=== PATIENT | male | born 1985 | race Caucasian/White ===

== ENCOUNTER 2019-04-02 22:36 | Emergency (ER) | payer OTHER, SELFPAY ==
[2019-04-02 22:43] VITALS: BP 130/75; PULSE 69; RESP 20; TEMP 36.1; O2SAT 99
[2019-04-02 23:05] VITALS: BP 133/81; PULSE 81; RESP 18; TEMP 36.8; O2SAT 100
--- NOTE | 2019-04-02 23:43 | ED.GENADULT ---
HPI - General Adult General Chief complaint: Wound/Laceration Stated complaint: spider bite Time Seen by Provider: 04/02/19 22:46 Source: patient Mode of arrival: ambulatory Limitations: no limitations History of Present Illness HPI narrative: Patient presents for evaluation of right arm erythema, concern for possible envenomation versus infection. Patient states he had a red pustule popped up on his right forearm last Saturday, patient is reporting it was red, itchy and, and seemed to spread. It did form a small white pustule which then drained clear and white fluid. Patient was then placed on antibiotics by Dr. Post, plastic surgeon. Patient has had no fever, no red streaking, no myalgias. No history of skin infection. Patient states his son has a similar lesion, and is concerned it could have been a brown recluse spider bite. Related Data Home Medications Medication Instructions Recorded Confirmed azelastine 0.05 % eye drops 1 drop EACH EYE BID 03/16/19 sumatriptan succinate 50 mg tablet See Rx Instructions PO .COMPLEX 03/16/19 triamcinolone acetonide 55 mcg 1 spray NASAL DAILY 03/16/19 nasal spray aerosol Allergies Allergy/AdvReac Type Severity Reaction Status Date / Time No Known Allergies Allergy Unverified 01/06/19 10:47 Review of Systems Review of Systems: Narrative: CONSTITUTIONAL: Denies fever, chills GASTROINTESTINAL: Denies nausea, vomiting, or diarrhea. SKIN: Reports rash and itching MUSCULOSKELETAL: Denies myalgia. PMFSH Social History Social History Smoking status: Never smoker Alcohol intake: current Gender identity (if verbalized by the patient): Male Exam Narrative: Exam Narrative: GENERAL: Awake, alert, well-appearing HEAD: Normocephalic, atraumatic. EYES: PERRLA and EOMI. ENT: Nares clear, no rhinorrhea or epistaxis. Mucous membranes moist. NECK: Supple. CHEST: No respiratory distress. HEART: Normal peripheral pulses. Radial pulse 2+. ABDOMEN: Nondistended EXTREMITIES: Normal range of motion. SKIN: Approximately 5 cm x 4 cm circular area of erythema, warmth, with small pustular head without any evidence of purulent drainage or vesicles present on the right forearm. Mildly tender. No linear streaking proximally. No lymphadenopathy. NEURO: No focal deficits. Alert and oriented x3 Course Course Emergency Course: Patient presented for evaluation of skin irritation. Differential would include envenomation/allergic reaction versus secondary cellulitis given prolonged symptoms at this point. Patient has only been on 1 day of Bactrim, so we will go ahead and expand to Keflex, explained to the patient the importance of a 72-hour window to see antibiotic improvement. Also may try Benadryl for some local antihistamine/itching type symptoms which may be allergic in nature. Patient may have initially had a bug bite/envenomation, and then after opening the small sore but this may have led to a secondary cellulitis. Patient is hemodynamically stable, no systemic symptoms, no other concerning features. The skin wound was outlined, patient was given advice for wound care follow-up, he is set to see his primary care provider next week. Also advised we could recheck wound in the ED if he became concerned over the weekend. Patient was then discharged home in stable condition. Vital Signs Vital signs: Vital Signs Temperature 36.1 C L 04/02/19 22:43 Pulse Rate 69 04/02/19 22:43 Respiratory Rate 20 04/02/19 22:43 Blood Pressure 130/75 04/02/19 22:43 Pulse Oximetry 99 04/02/19 22:43 Temperature 36.8 C 04/02/19 23:05 Pulse Rate 81 04/02/19 23:05 Respiratory Rate 18 04/02/19 23:05 Blood Pressure 133/81 04/02/19 23:05 Pulse Oximetry 100 04/02/19 23:05 Medical Decision Making Vital Signs Vital Signs: Vital Signs Temperature 36.1 C L 04/02/19 22:43 Pulse Rate 69 04/02/19 22:43 Respiratory Rate 20 04/02/19 22:43 Blood Pressure 130/75
== END 2019-04-03 00:02 | disposition home or self-care (01) ==
PROVIDERS: Emergency Provider Emergency Medicine; PCP Internal Medicine
DX: S50.861A Insect bite (nonvenomous) of right forearm, initial encounter (principal); W57.XXXA Bitten or stung by nonvenomous insect and other nonvenomous arthropods, initial encounter
CPT/HCPCS: 99283

== ENCOUNTER 2023-03-21 08:46 | Outpatient (CLI) | payer BC, SELFPAY ==
--- NOTE | ~2023-03-21 | XR_ITS ---
EXAMINATION: XR cervical spine 4-5V DATE: 03/21/2023 09:10 INDICATION: Neck pain. TECHNIQUE: 5 views of cervical spine including flexion and extension views were obtained. COMPARISON: None. FINDINGS: There is 4 degrees dextrocurvature of cervical spine. Inferior cervical spine is hypomobile with flexion and extension. There is an old fracture of spinous process of C7. Vertebral body height s are normal. There is moderately decreased disc height at C5-C6. At C5-C6, there is severe bilateral uncovertebral joint osteoarthritis. The facet joints are unremarkable. There is mild central canal s tenosis at C5-C6. No prevertebral soft tissue swelling. IMPRESSION: 1. Moderate spondylosis at C5-C6. Reviewed, dictated and finalized at location A. EUR/MASSEUSE
--- NOTE | ~2023-03-21 | XR_ITS ---
EXAMINATION: XR skull <4V DATE: 03/21/2023 09:09 INDICATION: Headache. TECHNIQUE: 3 views of the skull were obtained. COMPARISON: None. FINDINGS: Bone alignment is normal. No fracture. There is no abnormal mass. IMPRESSION: 1. Normal skull. Reviewed, dictated and finalized at location A. MACHINIST APPRENTICE IMPRESSION: 1. Normal skull.
== END 2023-03-21 08:47 | disposition home or self-care (01) ==
LOC: ANHLAB 08:48 → ANHIMG 08:50
PROVIDERS: PCP Internal Medicine; Visit Provider Internal Medicine
DX: R51.9 Headache, unspecified (principal); M47.892 Other spondylosis, cervical region
CPT/HCPCS: 70250; 72050